=== PATIENT | female | born 1955 | race Asian ===

== ENCOUNTER 2018-01-07 23:07 | Emergency (ER) | payer MEDICARE, OTHER, SELFPAY ==
[~2018-01-07] VITALS: Ht 154.9 cm; Wt 62.0 kg
[~2018-01-07 23:07] MED LIST: COLC0.6T67; FOSI10 PO; INDO50CA71 PO; [UNRECOGNIZED DRUG - REMARK]
[2018-01-07] MEDS ORDERED: CINA30 PO (23:20)
[2018-01-08 03:00] VITALS: BP 163/84
== END 2018-01-08 03:20 | disposition home or self-care (01) ==
LOC: EMS 23:08
DX: T85.698A Other mechanical complication of other specified internal prosthetic devices, implants and grafts, initial encounter (principal); N18.6 End stage renal disease; Z88.5 Allergy status to narcotic agent; Z99.2 Dependence on renal dialysis
CPT/HCPCS: 99283